=== PATIENT | male | born 1970 | race Caucasian/White ===

== ENCOUNTER 2021-05-12 10:33 | Emergency (ER) | payer MEDICAID ==
[~2021-05-12] VITALS: Ht 157.5 cm; Wt 61.2 kg
[2021-05-12 10:36] VITALS: BP_SYST 141
--- NOTE | 2021-05-12 10:36 | NUR ---
Placed in room 2 . Placed on residential monitor, blood pressure machine and pulse oximeter. To gown for exam. Side rails up. Report given to TODD MONTES DE OCA.
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
--- NOTE | 2021-05-12 10:50 | NUR ---
ER at bedside examining patient.
[2021-05-12] MEDS ORDERED: IBUPROFEN 600 MG TABLET PO ONE (11:15)
[2021-05-12] MEDS ORDERED: BACITRACIN 1 GM OINT TP ONE ×2 (12:50→13:15)
--- NOTE | 2021-05-12 13:08 | NUR ---
abrasions to legs, arms and back cleaned, and dressings applied.
--- NOTE | 2021-05-12 13:12 | NUR ---
right arm placed in sling
--- NOTE | 2021-05-12 13:53 | NUR ---
Patient given written and verbal discharge instructions and verbalizes understanding. Dr. Horta discussed with patient the results and treatment provided. Patient in stable condition. ID arm band removed. Pt. will use OTC Motrin at home. Patient educated on pain management and to follow up with PMD. Pain Scale 4. Opportunity for questions provided and answered.
[2021-05-12 13:56] VITALS: BP_SYST 121
== END 2021-05-12 13:53 | disposition home or self-care (01) ==
LOC: SED 10:33
DX: S43.101A Unspecified dislocation of right acromioclavicular joint, initial encounter (principal); V18.4XXA Pedal cycle driver injured in noncollision transport accident in traffic accident, initial encounter; Y93.89 Activity, other specified; Y92.89 Other specified places as the place of occurrence of the external cause; Y99.8 Other external cause status
CPT/HCPCS: 73030; 99283